=== PATIENT | male | born 1975 | race Caucasian/White ===

== ENCOUNTER → 2016-06-24 | Outpatient (CLI) | payer OTHER ==
[~2016-06-24] VITALS: Ht 180.3 cm; Wt 86.0 kg
[~2016-06-24] MED LIST: ADDERALL 20 MG20 M1 PO; ALEVE220 MG PO; CLONAZEPAM 0.50.5 M1 PO; CLONAZEPAM 1 MG1 M1 PO; CYMBALTA30 MG PO; DICLOFENAC SOD50 M1 PO; FLEXERIL PO; HYDROCODON-ACE1 EAC5 PO; HYDROCODONE-APA1 TA1 PO; NAPROSYN500 MG PO; NORCO 10-325 T1 EACH PO; PAXIL10 MG; VYVANSE20 MG PO; XANAX 0.5 MG0.5 MG PO
--- NOTE | ~2016-06-24 | HPC ---
[facility] [address] [address] PAIN MANAGEMENT CONSULTATION Name: NEERUNEWTON KING Room #: [facility] MHayes.#: [id number] Admission: 06/24/16 Attend Phys: Avtar Parikh DO Discharge: Date of : 73 Report #: [id number] THIS REPORT FOR: //name// CC: Rubina Wang DATE OF SERVICE: 06/24/2016 REFERRING PHYSICIAN: Rubina Morales DO. CHIEF COMPLAINT: Low back pain and bilateral lower extremity pain. HISTORY OF PRESENT ILLNESS: As you know, the patient is a 41-year-old male, who returns today in followup visit reporting pain score of around 2-3/10. States that previous injection provided through our services in the lower thoracic region resolved his thoracic pain entirely. He now experiences chronic low back pain, for which he has been diagnosed with facet arthropathy that is mild in nature. He has a mild central disk bulge. He has done well with epidural injections in the past and requests an epidural injection to be provided today. He states that with the previous injection in the lumbar region, he received near a year improvement in symptoms. He returns today for this epidural injection. He does indicate he is returning to work next week. ALLERGIES: No known drug allergies. CURRENT MEDICATIONS: Hydrocodone 7.5/325 one tab q. 8 hours p.r.n. for pain, Adderall 20 mg twice a day, clonazepam 1 mg p.o. at bedtime. SOCIAL HISTORY: The patient is smoking. He has a [id number] history of smoking abuse. He denies IV or illicit drug use. He denies any chronic alcohol use. He is unaccompanied today. IMAGING: No new imaging available. PHYSICAL EXAMINATION: VITAL SIGNS: Blood pressure 133/94, pulse 95, respiratory rate 18 and unlabored. The patient is 97% on room air. Height 5 feet 11 inches tall, weight 189.6 pounds, BMI calculated 26.5. GENERAL: Well-developed, well-nourished, and well-hydrated. A 41-year-old male appearing his stated age. Pain is rated at around 2-3/10. HEENT: Normocephalic and atraumatic. Pupils are equal, round, and reactive to light. EXTREMITIES: Showed no clubbing, no cyanosis, no edema. MUSCULOSKELETAL: Lower extremity strength equal and symmetrical at 5/5, intact to light touch from L1 through S2 dermatomes. Deep tendon reflexes are equal [facility] [address] [place] [address] PAIN MANAGEMENT CONSULTATION Name: NEWTON ISIDRO Room #: REG [facility].#: [id number] Admission: 06/24/16 Attend Phys: Avtar Parikh DO Discharge: Date of : 73 Report #: [id number] and symmetrical. Seated straight leg raising negative. Supine straight leg raising mildly positive at 70 degrees. Modified Gaenslen's is positive for some axial low back pain. ASSESSMENT: 1. Chronic diagnosis of lumbar radiculopathy. 2. Lumbosacral spondylosis without true radicular symptoms. 3. Post-laminectomy syndrome. 4. Chronic intractable pain. PLAN: 1. The patient returns today in followup visit, where we have taken 22 minutes of time reviewing the patient's MRI, as indicated in previous evaluations, the MRI of the thoracic spine shows a broad-based disk bulge at the T12-L1 level, small central annular disk irritation, mild to moderate central canal narrowing at L4-L5. There are postsurgical changes, small central canal changes. We discussed this again with the patient today. I do not feel this is the source of the patient's symptoms, but he does report good efficacy with epidural injections. We have had the patient returned today in followup visit to discuss the efficacy of this thoracic injection, which resolved his pain completely. He is now experiencing only back pain that is typical for him. He has requested a repeat epidural injection indicating that the last injection in the lumbar region gave him near a year improvement in symptoms. He has been consented, and we will perform a lumbar epidural injection under fluoroscopic guidance. He was advised the risks and benefits of the procedure, states he understood and wished to proceed. 2. The patient will be started on diclofenac sodium 50 mg dose 1 tab p.o. t.i.d. This will take the place of all other nonsteroidal anti-inflammatories, this being added to assist with lumbar facet irritation of lower lumbar spine. He is to take the tabs 3 times a day. He is to watch for dyspepsia, worsening blood pressure, lower extremity edema with its use. He was given #90 tablets, 2 refills. 3. The patient returns to our clinic on an as needed basis for possible repeat epidural injection. PROCEDURE NOTE DESCRIPTION OF PROCEDURE: Lumbar epidural steroid injection under fluoroscopic guidance. After obtaining written consent, the patient was taken back to fluoroscopy suite, placed in the prone position with pillow under abdomen to decrease lumbar lordosis. Skin overlying the lumbosacral area prepped and draped in an aseptic fashion. Lumbar intervertebral spaces were identified by AP fluoroscopy. Skin and subcutaneous tissue overlying the target site of injection was anesthetized with 3 mL of 1% lidocaine. [address] [address] PAIN MANAGEMENT CONSULTATION Name: NEWTON ISIDRO Room #: [facility] Augustine#: [id number] Admission: 06/24/16 Attend Phys: Avtar Parikh DO Discharge: Date of : 73 Report #: [id number] A 20-gauge 3-1/2 inch Tuohy needle advanced under fluoroscopic guidance towards the epidural space using paramedian approach. Epidural space identified using loss of resistance to air technique. After negative aspiration for heme or cerebrospinal fluid, 1 mL of Omnipaque was injected. Lumbar epidurogram was confirmed using both AP and lateral fluoroscopy. After negative aspiration for heme or cerebrospinal fluid, 5 mL of a solution containing 2 mL 40 mg per mL, 80 mg total triamcinolone, 3 mL lidocaine 1% injected slowly. Needle retracted approximately correction flushed with 1 mL of 1% lidocaine and removed. Sterile bandage placed over injection site. No new motor deficits present in lower extremity following the procedure. The patient tolerated the procedure well, carefully escorted to the recovery room in stable condition. No apparent complications. After meeting discharge criteria, the patient discharged home. <ELECTRONICALLY SIGNED> By: Avtar Parikh DO 07/07/16 [id number] Avtar Parikh DO /nt
[2016-06-24 10:14] VITALS: BP 133/94
== END | disposition home or self-care (01) ==
LOC: PAIN 07:03
DX: M47.27 Other spondylosis with radiculopathy, lumbosacral region (principal); M96.1 Postlaminectomy syndrome, not elsewhere classified; G89.29 Other chronic pain; F17.210 Nicotine dependence, cigarettes, uncomplicated